=== PATIENT | female | born 1965 | race African-American/Black ===

== ENCOUNTER 2017-07-30 15:27 | Day surgery (SDC) | payer OTHER ==
[~2017-07-30] VITALS: Ht 170.2 cm; Wt 97.8 kg
[~2017-07-30 15:27] MED LIST: BP MEDICATION PO; DIABETES MEDICATION PO
[2017-07-30] MEDS ORDERED: METFORMIN (15:57)
[2017-07-30] MEDS ORDERED: ASA (15:57)
[2017-07-30] MEDS ORDERED: BP MED (15:57)
[2017-07-30] MEDS ORDERED: CHOLESTEROL MED (15:57)
[2017-07-30] MEDS ORDERED: LIDOCAINE 2% (SDV) 5 ML INJ ONE (16:11)
[2017-07-30] MEDS ORDERED: PROPOFOL 20 ML ONE (16:11)
[2017-07-30] MEDS ORDERED: MIDAZOLAM 1 MG/ML 2 ML INJ ONE (16:12)
[2017-07-30 16:17] VITALS: BP 146/99; PULSE 98; RESP 18
--- NOTE | 2017-07-30 17:06 | OPPN ---
Date/Time of Note Date/Time of Note DATE: 07/30/17 TIME: 17:03 Operative Report Preoperative Diagnosis Screening Postoperative Diagnosis Poor prep Biopsy sigmoid polyp Diverticulosis of the colon Internal hemorrhoids Operation/Procedure Performed Colonoscopy and biopsy Provider: ROBERTA RAUSCH MD Anesthesia Type: MAC Estimated blood loss: none Transfusion Required: no Specimens Sigmoid polyp Grafts/Implants: none Complications: no ROBERTA RAUSCH MD Jul 30, 2017 17:06
--- NOTE | 2017-07-30 22:57 | GILP ---
DATE OF PROCEDURE: 07/30/2017 PROCEDURE PERFORMED: Colonoscopy and biopsy. SURGEON: Lucita Ahn MD PREOPERATIVE DIAGNOSIS: Screening colonoscopy. POSTOPERATIVE DIAGNOSES: 1. Colonoscopy all the way to the cecum. 2. Poor prep making the exam suboptimal. 3. Small sigmoid colon polyp was removed. 4. Internal hemorrhoids. INDICATION: Ms. Brenna Gallagher is a 52-year-old female patient who was scheduled for screening colonoscopy. The procedure and possible complications were well explained to the patient. The patient understood and consented to the procedure. DESCRIPTION OF PROCEDURE: Under the influence of anesthesia, the colonoscope was carefully introduced into the rectum and under direct vision it was advanced all the way to the cecum. FINDINGS: Patient had a small sigmoid colon polyp and it was removed using the biopsy forceps. Patient was noted to have mild diverticulosis of the colon. She had internal hemorrhoids. Patient had poor prep making the exam very suboptimal. She tolerated the procedure very well. There was no complication from the procedure. At the end of the procedure, she was awake with stable vital signs, and she was discharged home in the care of her family. IMPRESSION: 1. Colonoscopy all the way to the cecum. 2. Poor prep making the exam suboptimal. 3. Small sigmoid colon polyp was removed using the biopsy forceps. 4. Mild diverticulosis of the colon. 5. Internal hemorrhoids. PLAN: Because of the poor prep and suboptimal nature of the examination, would recommend repeat colonoscopy with better preparation in 2 years. Dictated By: MD RUFINO Espinoza/lorelei/g /Document#: [id number]
== END 2017-07-30 17:23 | disposition home or self-care (01) ==
LOC: GIL 15:27
PROVIDERS: ATTEND Internal Medicine Gastroenterology
DX: Z12.11 Encounter for screening for malignant neoplasm of colon (principal); K63.5 Polyp of colon; K57.30 Diverticulosis of large intestine without perforation or abscess without bleeding; K64.8 Other hemorrhoids; E11.9 Type 2 diabetes mellitus without complications; I10 Essential (primary) hypertension
CPT/HCPCS: 45380; 82962; 88305; J2250; Z7610